=== PATIENT | female | born 1970 | race Caucasian/White ===

== ENCOUNTER → 2024-12-14 10:57 | Emergency (ER) | payer BC, SELFPAY ==
[2024-12-14 11:15] VITALS: BMI 29.4
[2024-12-14 11:19] VITALS: BP 142/68
[2024-12-14 11:52] LABS: Hematocrit 38.4 % (37.0-47.0); Hemoglobin 13.0 g/dL (12.0-16.0); Mean Corp Hgb Conc. 33.9 g/dL (33.0-37.0); Mean Corpuscular Volume 91.0 fL (81.0-99.0); Platelet Count 229 10^3/uL (130-400); Red Cell Dist. Width 12.1 % (11.5-14.5)
[2024-12-14 12:02] LABS: Urine Character Clear (Clear)
[2024-12-14 12:08] LABS: ALT (SGPT) 37 U/L (0-35); AST (SGOT) 32 U/L (14-36); Albumin 4.8 g/dl (3.5-5.0); Alkaline Phosphatase 69 U/L (38-126); Blood Urea Nitrogen 8 mg/dl (7-17); Calcium 9.9 mg/dl (8.4-10.2); Carbon Dioxide 25 mmol/L (22-30); Chloride 103 mmol/L (98-107); Estimated Creatinine Clearance 121 ml/min; Glucose 150 mg/dl (70-99); Potassium 4.6 mmol/L (3.5-5.1); Sodium 137 mmol/L (135-145); Total Protein 7.6 g/dl (6.3-8.2); eGFR > 60.00
--- NOTE | 2024-12-14 12:48 | ED.GENMED ---
History of Present Illness
General
Chief Complaint: Gait Dysfunction
Time Seen by Provider: 12/14/24 11:03
History of Present Illness
History of Present Illness:
54-year-old female presents to the emergency department for evaluation of a myriad of symptoms that been ongoing for the past several months. She notes recent increased anxiety which is very atypical for her and has recently been started on Prozac.
She also notes intermittent bilateral thigh cramping discomfort particularly worse when walking. She also feels as though she has difficulty emptying her bladder appropriately and has to pee more often than normal. Denies any fevers or night
sweats. As an outpatient she is undergoing MRI of the sinuses, MRI of the cervical spine, CT coronary angiogram, and follow-up PET CT due to nonspecific abnormalities. She notes the majority these tests are normal with the exception of
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 She will see neurology as an outpatient next month
Review of Systems
Review of Systems
Allergies reviewed?: Yes
All Other Systems: ROS reviewed and negative except as documented in HPI and ROS
Phy Exam
Physical Exam
Physical Exam:
GEN: Well appearing, NAD, WDWN
HEENT: Oral mucosa moist, no scleral icterus, no nasal congestion
Cardiac: Regular rate and rhythm, no murmurs
Lung: No respiratory distress, no tachypnea
MSK: No gross deformity or injuries
Skin: Good color, no pallor or jaundice, no rashes
Neuro: AO x3; CN II-XII grossly intact. BUE strength 5/5 in all almaraz, sensation intact and symmetric. BLE strength 5/5 in all almaraz, sensation intact and symmetric. Gait is steady with no deficit or ataxia
Psych: Calm, cooperative
Course
Orders/Labs/Results
Orders:
Orders
12/14/24 11:23
CT Head W/o Iv Contrast Urgent
Comment:
Reason For Exam: headaches/gait dysfunction
12/14/24 11:40
Complete Blood Count/No Diff Urgent
Comprehensive Metabolic Panel Urgent
Lyme Progressive Urgent
TSH Reflex To Free T4 Urgent
Urinalysis Urgent
Date Specimen was Collected: 12/14/24
Time Specimen was Collected: 11:34
12/14/24 12:49
Add On- LAB Stat
Tests Added?: Lyme Progressive
12/14/24 14:12
Hemoglobin A1c [Glycohemoglobin (HgbA1c)] Urgent
Abnormal Lab Results
12/14/24
11:40
MPV 10.9 H fL
(7.4-10.4)
Creatinine 0.5 L mg/dL
(0.6-1.0)
Glucose 150 H mg/dl
(70-99)
ALT 37 H U/L
(0-35)
12/14/24 11:40
12/14/24 11:40
Vital Signs
Initial and Last Documented VS:
Initial Vital Signs
Pulse BP Pulse Ox
70 142/68 97
12/14/24 11:19 12/14/24 11:19 12/14/24 11:19
Last Documented Vital Signs
Temp Pulse BP Pulse Ox
98.0 F 70 142/68 97
12/14/24 11:20 12/14/24 11:19 12/14/24 11:19 12/14/24 12:49
MDM/Problems Addressed
MDM/Problems Addressed:
Certainly concerning that she has signs of microvascular ischemia on head CT, this could reflect a degenerative process such as early onset dementia however this would not explain her leg cramping with ambulation. Additionally I do not know that
this would explain her urinary complaint. I have encouraged her to follow-up with neurology as discussed and discussed's the possibility with her primary care physician of the lumbar spine and brain MRI for further workup. Lyme disease test sent
at time of discharge
*Pulse Oximetry
SaO2: 97
Oxygen Mode of Delivery: Room air
Patient hypoxic: no
*Critical Care Note
Total Time (30-74mins, 75-104mins- exclusive of procedures): Not Applicable
ED Attending Note
-
Portions of this chart may have been created with voice recognition software.� Occasional wrong word or��sound alike� substitutions may have occurred due to the inherent limitations of voice recognition software.
Discharge Plan
Departure
Patient Disposition: Home (Routine Discharge)
Date of Disposition: 12/14/24
Time of Disposition: 12:48
Patient with high blood pressure during this ER visit?: No
Discharge Problem:
Abnormality of gait, Pressure in head
Referrals:
PRIVATE,PHYSICIAN [Family Provider, Internal Medicine]
Activity Restrictions/Additional Instructions:
The cause of your symptoms is not clear at this time. Your CT head does not show any acute processes however a brain MRI may be more appropriate. Also recommend you discuss a lumbar spine MRI with your primary doctor as this may explain your leg
symptoms. The Lyme disease test will result in 2 to 3 days and we will contact you if positive. Follow-up with your neurologist next month as planned
Interventions
Interventions:
*Risk Screen - Suicide Last Done: 12/14/24 12:55
*General Assessment Last Done: 12/14/24 11:18
*Neglect/Abuse Screening Last Done: 12/14/24 12:55
*ED- Fall Risk Assessment Last Done: 12/14/24 11:19
*ED COVID-19 Vaccine History Last Done: 12/14/24 11:19
ED- Neurological Assessment Last Done: 12/14/24 12:55
Discharge Date and Time
Print Language: [place]
[2024-12-15 09:24] LABS: Glycohemoglobin (HgbA1c) 6.1 % (4.0-5.6)
== END | disposition home or self-care (01) ==
LOC: EMR 10:57
PROVIDERS: Physician Assistant; EMERGENCY PHYSICIAN Emergency Medicine
DX: R26.9 Unspecified abnormalities of gait and mobility (principal); R51.9 Headache, unspecified; F41.9 Anxiety disorder, unspecified
CPT/HCPCS: 99284; 70450; 80053; 81003; 83036; 84443; 85027; 86618